=== PATIENT | female | born 1955 | race Caucasian/White ===

== ENCOUNTER 2017-04-20 07:26 | Day surgery (SDC) | payer MEDICARE, MEDICAID ==
[~2017-04-20 07:26] MED LIST: Lactated Ringers 1,000 ML IV SCH; Sodium Chloride 0.9% 10 ML Syringe FLUSH PRN; Sodium Chloride 0.9% 2.5 ML Syringe FLUSH PRN
--- NOTE | 2017-04-20 07:31 | PCM.OPNOTE ---
<Anibal Peña - Last Filed: 04/20/17 10:27> - General Post-Op/Procedure Note Date of Surgery/Procedure: 04/20/17 Operative Procedure(s): diagnostic colonoscopy Findings: multiple sigmoid diverticuli Pre Op Diagnosis: change in bowel movements Post-Op Diagnosis: diveritculosis Anesthesia Technique: MAC Primary Surgeon: Joann Walter Complications: None Condition: Good <Joann Walter - Last Filed: 04/20/17 11:33> - General Post-Op/Procedure Note Post-Op Diagnosis: Grade 3 hemorrhoids Free Text/Narrative:: Intake & Output 04/19/17 04/20/17 04/20/17 22:59 06:59 14:59 Intake Total 900 Balance 900
--- NOTE | 2017-04-20 07:51 | PCM.PREANE ---
Preanesthetic Assessment - Anesthesia/Transfusion/Family Hx Anesthesia History: Prior Anesthesia Without Reaction Family History of Anesthesia Reaction: No Transfusion History: No Prior Transfusion(s) Intubation History: Unknown - Review of Systems General: No Symptoms Pulmonary: No Symptoms Cardiovascular: No Symptoms Gastrointestinal: Diarrhea Neurological: No Symptoms Other: Reports: None - Physical Assessment O2 Sat by Pulse Oximetry: 93 Respiratory Rate: 14 Vital Signs: Last Vital Signs Temp 36.4 C 04/20/17 07:37 Pulse 72 04/20/17 07:37 Resp 14 04/20/17 07:37 BP 98/79 04/20/17 07:37 Pulse Ox 93 L 04/20/17 07:37 Height: 1.73 m Weight: 81.193 kg ASA Class: 3 Mental Status: Alert & Oriented x3 Airway Class: Mallampati = 2 Dentition: Reports: Normal Dentition Thyro-Mental Finger Breadths: 2 Mouth Opening Finger Breadths: 3 ROM/Head Extension: Full Lungs: Clear to auscultation, Normal respiratory effort, Decreased breath sounds Cardiovascular: Regular Rate, Regular Rhythm - Allergies Allergies/Adverse Reactions: Allergies Allergy/AdvReac Type Severity Reaction Status Date / Time acetaminophen [From Tylenol] Allergy Hives Verified 04/13/17 13:26 aspirin Allergy Hives Verified 11/14/16 20:28 ketorolac [From Toradol] Allergy Hives Verified 04/13/17 13:26 tramadol Allergy Hives Verified 11/14/16 20:28 - Blood Blood Available: No - Anesthesia Plan Pre-Op Medication Ordered: None - Acknowledgements Anesthesia Type Planned: MAC Pt an Appropriate Candidate for the Planned Anesthesia: Yes Alternatives and Risks of Anesthesia Discussed w Pt/Guardian: Yes Pt/Guardian Understands and Agrees with Anesthesia Plan: Yes PreAnesthesia Questionnaire Other HEENT History: reading glasses Cardiovascular History: Reports: High Cholesterol, Hypertension Respiratory History: Reports: Asthma, Bronchitis, Recurrent, COPD, SOB (after one block) Gastrointestinal History: Genitourinary History: Reports: None G[employer] 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: Musculoskeletal History: Reports: Arthritis, Back Pain, Chronic, Fibromyalgia, Osteoporosis Other Musculoskeletal History: degenerative joint disease, bulging disc, osteoprosis Neurological History: Reports: Migraines Psychiatric History: Reports: Anxiety, Depression, Other (See Below) ( claustrophobia) Endocrine/Metabolic History: Reports: Hyperparathyroidism, Other (See Below) Other Endocrine/Metabolic History: Patient reports having a thyroid problem but unsure what diagnosis, questionable thyroid nodule, states she has been taking care of her mother and has not gotten it taken care of Hematologic History: Reports: Other (See Below) Other Hematologic History: easy brusing Immunologic History: Reports: None Oncologic (Cancer) History: Reports: None Dermatologic History: Reports: None - Infectious Disease History Infectious Disease History: Reports: Chicken Pox - Past Surgical History Head Surgeries/Procedures: Reports: None HEENT Surgical History: Reports: Cataract Surgery GI Surgical History: Reports: Colonoscopy, Hernia Repair/Other Other GI Surgeries/Procedures: hx incisional hernia repair Female Surgical History: Reports: Hysterectomy - SUBSTANCE USE Smoking Status *Q: Current Every Day Smoker (heavy smoker) Tobacco Use Within Last Twelve Months: Cigarettes Second Hand Smoke Exposure: No Days Per Week of Alcohol Use: 2 Number of Drinks Per Day: 2 Total Drinks Per Week: 4 Recreational Drug Use History: No - HOME MEDS Home Medications: Home Meds Alendronate [Fosamax] 70 mg PO Q7D 09/08/14 [History] Losartan [Cozaar] 25 mg PO DAILY 09/08/14 [History] Metoprolol Tartrate [Lopressor] 50 mg PO DAILY 09/08/14 [History] LORazepam 1 mg PO TID PRN #12 tablet 11/11/16 [Rx] Albuterol Sulfate [Proair Hfa] 2 puff INH Q4H PRN 04/13/17 [History] DULoxetine HCl [Cymbalta] 60 mg PO DAILY 04/13/17 [History] Diclofenac Sodium [Voltaren] 75 mg PO BID 04/13/17 [History] Potassium 75 mg PO ASDIRECTED 04/13/17 [History] Venlafaxine HCl [Venlafaxine HCl ER] 37.5 mg PO DAILY 04/13/17 [History] Vilazodone Hydrochloride [Viibryd] 40 mg PO DAILY 04/13/17 [History] traZODone HCl [Trazodone HCl] 100 mg PO BEDTIME 04/13/17 [History] - CURRENT (IN HOUSE) MEDS Current Meds: Current Medications Lactated Ringer's (Ringers, Lactated) 1,000 mls @ 125 mls/hr IV ASDIRECTED [facility] Last Admin: 04/20/17 07:39 Dose: 125 mls/hr Sodium Chloride (Saline Flush) 10 ml FLUSH ASDIRECTED PRN PRN Reason: Keep Vein Open Sodium Chloride (Saline Flush) 2.5 ml FLUSH ASDIRECTED PRN PRN Reason: Keep Vein Open
[2017-04-20] MEDS ORDERED: Lidocaine 2% 5 ML SDV ONE (08:27)
[2017-04-20] MEDS ORDERED: Midazolam 1 MG/ML 2 ML SDV ONE (08:28)
[2017-04-20] MEDS ORDERED: Propofol 200 MG/20 ML SDV ONE (08:28)
[2017-04-20] MEDS ORDERED: fentaNYL 100 MCG/2 ML SDV ONE (08:28)
--- NOTE | 2017-04-20 10:45 | PCM.POSTAN ---
POST ANESTHESIA ASSESSMENT - MENTAL STATUS Mental Status: alert, oriented - RESPIRATORY Respiratory Status: respiratory rate WNL, airway patent, O2 saturation stable - CARDIOVASCULAR CV Status: pulse rate WNL, blood pressure stable - GASTROINTESTINAL GI Status: no symptoms - POST OP HYDRATION Hydration Status: adequate & stable - OBSERVATIONS Free Text/Narrative:: no anesthesia problems
[2017-04-20 10:57] VITALS: BP 94/64
--- NOTE | 2017-04-21 11:39 | OR ---
SURGEON: JOANN WALTER MD DATE OF PROCEDURE: 04/20/2017 PREOPERATIVE DIAGNOSIS: Change in bowel habits. POSTOPERATIVE DIAGNOSIS: Grade 3 hemorrhoids and diverticulosis. PROCEDURE PERFORMED: Diagnostic colonoscopy. ENDOSCOPIST: Dr. Joann Walter. INSTRUMENT USED: Olympus colonoscope. ANESTHESIA: MAC. EXTENT OF EXAM: To the cecum. PREPARATION: Good. LIMITATIONS: None. INDICATION FOR EXAMINATION: The patient is a 61-year-old female, who presents with abdominal pain associated with a change in her bowel habits. She has had frequent loose stools and has noticed some bright red blood on the stools and while wiping. A decision was made to perform a diagnostic colonoscopy since she has never had a colonoscopy before. The patient and I discussed the procedure as well as the risks including bleeding, infection, or damage to surrounding structures, including perforation. The patient verbalized understanding and wishes to proceed. PROCEDURE IN DETAIL: The patient was brought to the endoscopy suite and placed in left lateral decubitus position. A time-out was completed verifying the patient's name, age, date of , allergies, and procedure to be performed. Monitored anesthesia care was induced and continuous oxygen was provided via nasal cannula throughout the procedure. After adequate sedation was achieved, a digital rectal exam was performed. This exam showed redundant hemorrhoidal tissue that was easily able to be reduced back into the anus. A well lubricated colonoscope was inserted in the rectum and advanced under direct visualization to the level of cecum. The cecum was identified by both visual and anatomic landmarks. A photograph was taken of the cecal cap as well as with the scope retroflexed within the cecum. The scope was then fully withdrawn while examining the color, texture, anatomy, and integrity of the mucosa from the cecum to the anal canal. The findings were consistent with diffuse diverticulosis within the sigmoid colon. The scope was then brought into the rectum and retroflexed to allow visualization of the anal canal opening. This appeared normal and a photograph was taken. The scope was straightened out and removed from the patient. The cecum to anus time was 11 minutes. The patient was transferred to recovery room in stable condition. ENDOSCOPIC DIAGNOSIS: Diverticulosis, grade 3 hemorrhoids. RECOMMENDATIONS: Follow up in the clinic in 2 weeks. MILAD GUILLEN /[id number]
== END 2017-04-20 11:25 | disposition home or self-care (01) ==
LOC: MW.SDS 07:26
PROVIDERS: ATTEND Surgery
DX: K57.30 Diverticulosis of large intestine without perforation or abscess without bleeding (principal); K64.2 Third degree hemorrhoids; I10 Essential (primary) hypertension; E78.00 Pure hypercholesterolemia, unspecified; J45.909 Unspecified asthma, uncomplicated; F41.9 Anxiety disorder, unspecified; F32.9 Major depressive disorder, single episode, unspecified; E21.3 Hyperparathyroidism, unspecified; Z90.710 Acquired absence of both cervix and uterus; Z98.890 Other specified postprocedural states; F17.210 Nicotine dependence, cigarettes, uncomplicated; Z88.8 Allergy status to other drugs, medicaments and biological substances; Z79.899 Other long term (current) drug therapy
CPT/HCPCS: 45378; J2250; J3010; J7120; 00810; J2704

== ENCOUNTER 2019-09-25 14:50 | Emergency (ER) | payer MEDICARE, MEDICAID ==
[2019-09-25 15:26] VITALS: PULSE 82
--- NOTE | 2019-09-25 16:01 | EDM.PDOC ---
ED HPI GENERAL MEDICAL PROBLEM - General Chief Complaint: Flank Pain Stated Complaint: PAIN IN SIDE Time Seen by Provider: 09/25/19 15:49 - History of Present Illness INITIAL COMMENTS - FREE TEXT/NARRATIVE: HISTORY AND PHYSICAL: History of present illness: Patient is a 63-year-old white female who presented concern of flank pain is vaguely described she's had off and on for approximately 2 weeks she has been seen in the past for multiple similar episodes. She has history of anxiety there 's been no reported trauma fever chills nausea vomiting or other concern Review of systems: As per history of present illness and below otherwise all systems reviewed and negative. Past medical history: As per history of present illness and as reviewed below otherwise noncontributory. Surgical history: As per history of present illness and as reviewed below otherwise noncontributory. Social history: No reported history of drug or alcohol abuse. Family history: As per history of present illness and as reviewed below otherwise noncontributory. Physical exam: HEENT: Atraumatic, normocephalic, pupils reactive, negative for conjunctival pallor or scleral icterus, mucous membranes moist, throat clear, neck supple, nontender, trachea midline. Lungs: Clear to auscultation, breath sounds equal bilaterally, chest nontender. Heart: S1S2, regular, negative for clicks, rubs, or JVD. Abdomen: Soft, nondistended, nontender. Negative for masses or hepatosplenomegaly. Negative for costovertebral tenderness. Pelvis: Stable nontender. Genitourinary: Deferred. Rectal: Deferred. Extremities: Atraumatic, negative for cords or calf pain. Neurovascular unremarkable. Neuro: Awake, alert, oriented. Cranial nerves II through XII unremarkable. Cerebellum unremarkable. Motor and sensory unremarkable throughout. Exam nonfocal. Diagnostics: CBC CMP lipase UA Therapeutics: None Impression: #1 flank pain 2 history of anxiety Definitive disposition and diagnosis as appropriate pending reevaluation and review of above. left flank Pain Score (Numeric/FACES): 10 - Related Data Allergies Allergy/AdvReac Type Severity Reaction Status Date / Time acetaminophen [From Tylenol] Allergy Hives Verified 09/25/19 15:26 aspirin Allergy Hives Verified 09/25/19 15:26 ketorolac [From Toradol] Allergy Hives Verified 09/25/19 15:26 tramadol Allergy Hives Verified 09/25/19 15:26 Home Meds: Home Meds Metoprolol Tartrate [Lopressor] 50 mg PO DAILY 09/08/14 [History] Albuterol Sulfate [Proair Hfa] 2 puff INH Q4H PRN 04/13/17 [History] DULoxetine HCl [Cymbalta] 60 mg PO DAILY 04/13/17 [History] Potassium 99 mg PO BID 04/13/17 [History] Vilazodone Hydrochloride [Viibryd] 40 mg PO DAILY 04/13/17 [History] traZODone HCl [Trazodone HCl] 300 mg PO BEDTIME 04/13/17 [History] C-Nal Trexone 3 mg PO DAILY 11/16/18 [History] Cyanocobalamin (Vitamin B-12) [Vitamin B-12] 5,000 mcg PO DAILY 11/16/18 [ History] Fish Oil/[place]-3 Fatty Acids [Fish Oil 1,000 MG] 0 mg PO DAILY 11/16/18 [History ] LORazepam 0.5 mg PO ASDIRECTED PRN 11/16/18 [History] Magnesium 500 mg PO BEDTIME 11/16/18 [History] Multivitamin [Multivitamins] 0 mg PO DAILY 11/16/18 [History] Pressure Vission 0 mg PO DAILY 11/16/18 [History] Raloxifene [Evista] 60 mg PO DAILY 11/16/18 [History] Past Medical History HEENT History: Reports: Other (See Below) Other HEENT History: reading glasses Cardiovascular History: Reports: High Cholesterol, Hypertension Respiratory History: Reports: Asthma, Bronchitis, Recurrent, COPD, SOB Gastrointestinal History: Genitourinary History: Reports: None 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: Musculoskeletal History: Reports: Arthritis, Back Pain, Chronic, Fibromyalgia, Osteoporosis Other Musculoskeletal History: degenerative joint disease, bulging disc, osteoprosis Neurological History: Reports: Migraines Psychiatric History: Reports: Anxiety, Depression, Other (See Below) Endocrine/Metabolic History: Reports: Hyperparathyroidism, Other (See Below) Other Endocrine/Metabolic History: Patient reports having a thyroid problem but unsure what diagnosis, questionable thyroid nodule, states she has been taking care of her mother and has not gotten it taken care of Hematologic History: Reports: Other (See Below) Other Hematologic History: easy brusing Immunologic History: Reports: None Oncologic (Cancer) History: Reports: None Dermatologic History: Reports: None - Infectious Disease History Infectious Disease History: Reports: Chicken Pox - Past Surgical History Head Surgeries/Procedures: Reports: None HEENT Surgical History: Reports: Cataract Surgery, Tonsillectomy GI Surgical History: Reports: Colonoscopy, Hernia Repair/Other Other GI Surgeries/Procedures: hx incisional hernia repair Female Surgical History: Reports: Hysterectomy Social & Family History - Family History Family Medical History: Noncontributory - Tobacco Use Smoking Status *Q: Current Every Day Smoker Years of Tobacco use: 35 Packs/Tins Daily: 2 - Caffeine Use Caffeine Use: Reports: Soda - Recreational Drug Use Recreational Drug Use: No ED ROS GENERAL - Review of Systems Review Of Systems: Comprehensive ROS is negative, except as noted in HPI. ED EXAM, GENERAL - Physical Exam Exam: See Below (See dictation) Course - Vital Signs Last Recorded V/S: Last Vital Signs Temp 35.9 C 09/25/19 15:24 Pulse 82 09/25/19 15:24 Resp 20 09/25/19 15:24 BP 108/66 09/25/19 15:24 Pulse Ox 94 L 09/25/19 15:24 - Orders/Labs/Meds Orders: Active Orders 24 hr Category Date Time Status COMPREHENSIVE METABOLIC PN,CMP [CHEM] Stat Lab 09/25/19 16:02 Received LIPASE [CHEM] Stat Lab 09/25/19 16:02 Received Labs: Laboratory Tests 09/25/19 09/25/19 Range/Units 15:46 16:02 WBC 12.08 H (4.0-11.0) K/uL RBC 5.03 (4.30-5.90) M/uL Hgb 14.5 (12.0-16.0) g/dL Hct 45.4 (36.0-46.0) % MCV 90.3 (80.0-98.0) fL MCH 28.8 (27.0-32.0) pg MCHC 31.9 (31.0-37.0) g/dL RDW Std Deviation 51.9 (28.0-62.0) fl RDW Coeff of Joseph 16 H (11.0-15.0) % Plt Count 295 (150-400) K/uL MPV 9.60 (7.40-12.00) fL Neut % (Auto) 69.0 (48.0-80.0) % Lymph % (Auto) 20.6 (16.0-40.0) % [place] % (Auto) 9.5 (0.0-15.0) % Eos % (Auto) 0.7 (0.0-7.0) % Baso % (Auto) 0.2 (0.0-1.5) % Neut # (Auto) 8.3 H (1.4-5.7) K/uL Lymph # (Auto) 2.5 H (0.6-2.4) K/uL [place] # (Auto) 1.2 H (0.0-0.8) K/uL Eos # (Auto) 0.1 (0.0-0.7) K/uL Baso # (Auto) 0.0 (0.0-0.1) K/uL Nucleated RBC % 0.0 /100WBC Nucleated RBCs # 0 K/uL Urine Color YELLOW Urine Appearance CLEAR Urine pH 6.5 (5.0-8.0) Ur Specific [place] 1.015 (1.001-1.035) Urine Protein NEGATIVE (NEGATIVE) mg/dL Urine Glucose (UA) NEGATIVE (NEGATIVE) mg/dL Urine Ketones NEGATIVE (NEGATIVE) mg/dL Urine Occult Blood NEGATIVE (NEGATIVE) Urine Nitrite NEGATIVE (NEGATIVE) Urine Bilirubin NEGATIVE (NEGATIVE) Urine Urobilinogen 0.2 (<2.0) EU/dL Ur Leukocyte Esterase NEGATIVE (NEGATIVE) Departure - Departure Time of Disposition: 16:00 Disposition: Home, Self-Care 01 Condition: Good Clinical Impression: Flank pain, Encounter for medical screening examination, History of anxiety - Discharge Information Referrals: Angela Lockhart MD [Primary Care Provider] - Forms: ED Department Discharge Additional Instructions: The following information is given to patients seen in the emergency department who are being discharged to home. This information is to outline your options for follow-up care. We provide all patients seen in our emergency department with a follow-up referral. The need for follow-up, as well as the timing and circumstances, are variable depending upon the specifics of your emergency department visit. If you don't have a primary care physician on staff, we will provide you with a referral. We always advise you to contact your personal physician following an emergency department visit to inform them of the circumstance of the visit and for follow-up with them and/or the need for any referrals to a consulting specialist. The emergency department will also refer you to a specialist when appropriate. This referral assures that you have the opportunity for followup care with a specialist. All of these measure are taken in an effort to provide you with optimal care, which includes your followup. Under all circumstances we always encourage you to contact your private physician who remains a resource for coordinating your care. When calling for followup care, please make the office aware that this follow-up is from your recent emergency room visit. If for any reason you are refused follow-up, please contact the [facility] emergency department at and asked to speak to the emergency department charge nurse. Follow-up primary medical doctor return as needed as discussed Sepsis Event Note - Evaluation Sepsis Screening Result: No Definite Risk - Focused Exam Vital Signs: Vital Signs Temp Pulse Resp BP Pulse Ox 09/25/19 15:24 35.9 C 82 20 108/66 94 L Date Exam was Performed: 09/25/19 Time Exam was Performed: 16:31 - My Orders Last 24 Hours: My Active Orders 09/25/19 16:02 COMPREHENSIVE METABOLIC PN,CMP [CHEM] Stat LIPASE [CHEM] Stat - Assessment/Plan Last 24 Hours: My Active Orders 09/25/19 16:02 COMPREHENSIVE METABOLIC PN,CMP [CHEM] Stat LIPASE [CHEM] Stat
[2019-09-25 16:49] LABS: BLOOD UREA NITROGEN,BUN 11 mg/dL (7.0-18.0); CARBON DIOXIDE,CO2 24.1 mmol/L (21.0-32.0); CHLORIDE,CL 103 mmol/L (98-107); GLUCOSE RANDOM 99 mg/dL (74-106); LIPASE 79 U/L (73-393); POTASSIUM,K 4.8 mmol/L (3.5-5.1); SODIUM,NA 136 mmol/L (136-145)
[2019-09-25 17:30] VITALS: BP 103/73
== END 2019-09-25 17:15 | disposition home or self-care (01) ==
LOC: MW.ED 14:50
DX: R10.9 Unspecified abdominal pain (principal); F41.9 Anxiety disorder, unspecified; I10 Essential (primary) hypertension; E78.00 Pure hypercholesterolemia, unspecified; J44.9 Chronic obstructive pulmonary disease, unspecified; M19.90 Unspecified osteoarthritis, unspecified site; F32.9 Major depressive disorder, single episode, unspecified; F17.210 Nicotine dependence, cigarettes, uncomplicated; Z88.8 Allergy status to other drugs, medicaments and biological substances; Z88.5 Allergy status to narcotic agent; Z79.899 Other long term (current) drug therapy
CPT/HCPCS: 36415; 80053; 81003; 83690; 85025; 99283; 99284

== ENCOUNTER 2019-12-04 20:02 | Emergency (ER) | payer MEDICARE, MEDICAID ==
--- NOTE | 2019-12-04 20:20 | EDM.PDOC ---
ED HPI GENERAL MEDICAL PROBLEM - General Chief Complaint: General Stated Complaint: MEDICAL CLEARANCE Time Seen by Provider: 12/04/19 20:09 Source of Information: Reports: Patient History Limitations: Reports: No Limitations - History of Present Illness INITIAL COMMENTS - FREE TEXT/NARRATIVE: HISTORY AND PHYSICAL: History of present illness: Patient is a 64-year-old female who presents to the emergency room with law enforcement for medical clearance exam. Patient states that she feels well and would not have brought herself to the emergency room if it was and insisted on the police to come for evaluation. Police state they have no concern but since she is on chronic medications they needed her cleared. Patient states she has a history of anxiety and chronic back pain. Currently offers no complaints or concerns. Review of systems: As per history of present illness and below otherwise all systems reviewed and negative. Past medical history: As per history of present illness and as reviewed below otherwise noncontributory. Surgical history: As per history of present illness and as reviewed below otherwise noncontributory. Social history: See social history for further information Family history: As per history of present illness and as reviewed below otherwise noncontributory. Physical exam: General: Well-developed and well-nourished 64-year-old female. Alert and oriented. Nontoxic-appearing and in no acute distress. HEENT: Atraumatic, normocephalic, pupils equal and reactive bilaterally, negative for conjunctival pallor or scleral icterus, mucous membranes moist, TMs normal bilaterally, throat clear, neck supple, nontender, trachea midline. No drooling or trismus noted. No meningeal signs. No hot potato voice noted. Lungs: Clear to auscultation, breath sounds equal bilaterally, chest nontender. Heart: S1S2, regular rate and rhythm without overt murmur Abdomen: Soft, nondistended, nontender. Skin: Intact, warm, dry. No lesions or rashes noted. Extremities: Atraumatic, moves all extremities per self without difficulty or deficits, negative for cords or calf pain. Neurovascular unremarkable. Neuro: Awake, alert, oriented. Cranial nerves II through XII unremarkable. Cerebellum unremarkable. Motor and sensory unremarkable throughout. Exam nonfocal. Notes: My physical exam is within normal limits. Vital signs are stable. Patient declines wanting any diagnostics as she is asymptomatic. Supportive care measures were reviewed and discussed. Voices understanding and is agreeable to plan of care. Denies any further questions or concerns at this time. Diagnostics: None Therapeutics: None Prescription: None Impression: Encounter for medical screening exam Plan: 1. Take your home medications as directed. 2. Follow-up with your primary care provider as we discussed. 3. Return to the ED as needed and as discussed. Definitive disposition and diagnosis as appropriate pending reevaluation and review of above. - Related Data Allergies Allergy/AdvReac Type Severity Reaction Status Date / Time acetaminophen [From Tylenol] Allergy Hives Verified 12/04/19 20:20 aspirin Allergy Hives Verified 12/04/19 20:20 ketorolac [From Toradol] Allergy Hives Verified 12/04/19 20:20 tramadol Allergy Hives Verified 12/04/19 20:20 Home Meds: Home Meds Metoprolol Tartrate [Lopressor] 50 mg PO DAILY 09/08/14 [History] Albuterol Sulfate [Proair Hfa] 2 puff INH Q4H PRN 04/13/17 [History] DULoxetine HCl [Cymbalta] 60 mg PO DAILY 04/13/17 [History] Potassium 99 mg PO BID 04/13/17 [History] Vilazodone Hydrochloride [Viibryd] 40 mg PO DAILY 04/13/17 [History] traZODone HCl [Trazodone HCl] 300 mg PO BEDTIME 04/13/17 [History] C-Nal Trexone 3 mg PO DAILY 11/16/18 [History] Cyanocobalamin (Vitamin B-12) [Vitamin B-12] 5,000 mcg PO DAILY 11/16/18 [ History] Fish Oil/[place]-3 Fatty Acids [Fish Oil 1,000 MG] 0 mg PO DAILY 11/16/18 [History ] LORazepam 0.5 mg PO ASDIRECTED PRN 11/16/18 [History] Magnesium 500 mg PO BEDTIME 11/16/18 [History] Multivitamin [Multivitamins] 0 mg PO DAILY 11/16/18 [History] Pressure Vission 0 mg PO DAILY 11/16/18 [History] Raloxifene [Evista] 60 mg PO DAILY 11/16/18 [History] Past Medical History HEENT History: Reports: Other (See Below) Other HEENT History: reading glasses Cardiovascular History: Reports: High Cholesterol, Hypertension Respiratory History: Reports: Asthma, Bronchitis, Recurrent, COPD, SOB Gastrointestinal History: Genitourinary History: Reports: None 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: Musculoskeletal History: Reports: Arthritis, Back Pain, Chronic, Fibromyalgia, Osteoporosis Other Musculoskeletal History: degenerative joint disease, bulging disc, osteoprosis Neurological History: Reports: Migraines Psychiatric History: Reports: Anxiety, Depression, Other (See Below) Endocrine/Metabolic History: Reports: Hyperparathyroidism, Other (See Below) Other Endocrine/Metabolic History: Patient reports having a thyroid problem but unsure what diagnosis, questionable thyroid nodule, states she has been taking care of her mother and has not gotten it taken care of Hematologic History: Reports: Other (See Below) Other Hematologic History: easy brusing Immunologic History: Reports: None Oncologic (Cancer) History: Reports: None Dermatologic History: Reports: None - Infectious Disease History Infectious Disease History: Reports: Chicken Pox - Past Surgical History Head Surgeries/Procedures: Reports: None HEENT Surgical History: Reports: Cataract Surgery, Tonsillectomy GI Surgical History: Reports: Colonoscopy, Hernia Repair/Other Other GI Surgeries/Procedures: hx incisional hernia repair Female Surgical History: Reports: Hysterectomy Social & Family History - Family History Family Medical History: Noncontributory - Caffeine Use Caffeine Use: Reports: Soda ED ROS GENERAL - Review of Systems Review Of Systems: Comprehensive ROS is negative, except as noted in HPI. ED EXAM, GENERAL - Physical Exam Exam: See Below (See dictation) Course - Vital Signs Last Recorded V/S: Last Vital Signs Temp 97 F 12/04/19 20:18 Pulse 104 H 12/04/19 20:18 Resp 20 12/04/19 20:18 BP 153/96 H 12/04/19 20:18 Pulse Ox 96 12/04/19 20:18 Departure - Departure Time of Disposition: 20:20 Disposition: Home, Self-Care 01 Clinical Impression: Encounter for medical screening examination - Discharge Information Referrals: PCP,None [Primary Care Provider] - Forms: ED Department Discharge Additional Instructions: The following information is given to patients seen in the emergency department who are being discharged to home. This information is to outline your options for follow-up care. We provide all patients seen in our emergency department with a follow-up referral. The need for follow-up, as well as the timing and circumstances, are variable depending upon the specifics of your emergency department visit. If you don't have a primary care physician on staff, we will provide you with a referral. We always advise you to contact your personal physician following an emergency department visit to inform them of the circumstance of the visit and for follow-up with them and/or the need for any referrals to a consulting specialist. The emergency department will also refer you to a specialist when appropriate. This referral assures that you have the opportunity for follow-up care with a specialist. All of these measure are taken in an effort to provide you with optimal care, which includes your follow-up. Under all circumstances we always encourage you to contact your private physician who remains a resource for coordinating your care. When calling for follow-up care, please make the office aware that this follow-up is from your recent emergency room visit. If for any reason you are refused follow-up, please contact the [facility] Department at and asked to speak to the emergency department charge nurse. [facility] [address] [place] [id number] [place] [address] 1. Take your home medications as directed. 2. Follow-up with your primary care provider as we discussed. 3. Return to the ED as needed and as discussed. Sepsis Event Note - Focused Exam Vital Signs: Vital Signs Temp Pulse Resp BP Pulse Ox 12/04/19 20:18 97 F 104 H 20 153/96 H 96
[2019-12-04 20:21] VITALS: PULSE 104
[2019-12-04 20:51] VITALS: BP 177/84
== END 2019-12-04 20:30 | disposition home or self-care (01) ==
LOC: MW.ED 20:02
DX: Z02.89 Encounter for other administrative examinations (principal); I10 Essential (primary) hypertension; E78.00 Pure hypercholesterolemia, unspecified; J44.9 Chronic obstructive pulmonary disease, unspecified; M19.90 Unspecified osteoarthritis, unspecified site; F41.9 Anxiety disorder, unspecified; F32.9 Major depressive disorder, single episode, unspecified; E21.3 Hyperparathyroidism, unspecified; Z88.8 Allergy status to other drugs, medicaments and biological substances; Z88.5 Allergy status to narcotic agent; Z79.899 Other long term (current) drug therapy
CPT/HCPCS: 99282; 99283

== ENCOUNTER 2021-02-11 23:53 | Emergency (ER) | payer MEDICARE, MEDICAID ==
[2021-02-12] MEDS ORDERED: Sodium Chloride 0.9% 10 ML Syringe FLUSH PRN (00:41)
[2021-02-12] MEDS ORDERED: Sodium Chloride 0.9% 1,000 ML IV ONE (00:41)
[2021-02-12] MEDS ORDERED: HYDROmorphone 1 MG/ML Syringe IVPUSH ONE (00:41)
[2021-02-12] MEDS ORDERED: Sodium Chloride 0.9% 2.5 ML Syringe FLUSH PRN (00:41)
[2021-02-12] MEDS ORDERED: Ondansetron 4 MG/2 ML SDV IVPUSH ONE (00:41)
[2021-02-12 01:14] LABS: BLOOD UREA NITROGEN,BUN 15 mg/dL (7.0-18.0); CARBON DIOXIDE,CO2 28.1 mmol/L (21.0-32.0); CHLORIDE,CL 102 mmol/L (98-107); GLUCOSE RANDOM 102 mg/dL (74-106); LIPASE 67 U/L (73-393); POTASSIUM,K 4.3 mmol/L (3.5-5.1); SODIUM,NA 140 mmol/L (136-145)
--- NOTE | 2021-02-12 02:20 | EDM.PDOC ---
ED HPI GENERAL MEDICAL PROBLEM - General Chief Complaint: Abdominal Pain Stated Complaint: APPENDIX Time Seen by Provider: 02/12/21 00:38 - History of Present Illness INITIAL COMMENTS - FREE TEXT/NARRATIVE: HISTORY AND PHYSICAL: History of present illness: This is a 65-year-old female who is status post hysterectomy, hernia repair, thyroid cancer with thyroid resection, who presents ER today complaining of right-sided flank and abdominal pain has been intermittent for the last 1 to 2 weeks. Patient denies any recent fevers, shakes, chills. Patient reports nausea with no vomiting or diarrhea. Patient has a dysuria, frequency, urgency, hematuria, melena, bright red blood per rectum. Patient reports pain increases with movement. Patient denies any chest pain or shortness of breath. Patient reports she is tolerating p.o. solids and liquids well. Patient denies any recent trauma. Review of systems: As per history of present illness and below otherwise all systems reviewed and negative. Past medical history: As per history of present illness and as reviewed below otherwise noncontributory. Surgical history: As per history of present illness and as reviewed below otherwise noncontributory. Social history: No reported history of drug or alcohol abuse. Family history: As per history of present illness and as reviewed below otherwise noncontributory. Physical exam: This patient was seen and evaluated during the 2019 SARS-CoV-2 novel coronavirus pandemic period. Community viral transmission is ongoing at time of this encounter and the emergency department is operating under pandemic response p rocedures. Constitutional: Patient is oriented to person, place, and time. Appears well- developed and well-nourished. No distress. HEENT: Moist mucous membranes Head: Normocephalic and atraumatic Eyes: Right eye exhibits no discharge. Left eye exhibits no discharge. No scleral icterus Neck: Normal range of motion. No tracheal deviation present. Cardiovascular: Normal rate and regular rhythm. Pulmonary: Effort normal, no respiratory distress. Abd: Soft, nondistended, no rebound/guarding, no psoas or obturator signs, no tenderness at Mcberney's point, no Aquino's sign. Pt does not present with an exam that would be consistent with an acute surgical abdomen at this time, mild to moderate tenderness palpation to her right flank and right lower quadrant. Musculoskeletal: Normal range of motion Neurologic: Alert and oriented to person, place and time. Skin: [place], warm and dry. Psychiatric: Normal mood and affect. Behavior is normal. Judgment and thought content normal. Nursing note and vital signs have been reviewed Diagnostics: IMPRESSION: Bilateral nephrolithiasis without hydronephrosis. Gallbladder sludge or stones. Left adrenal gland adenoma. Colonic diverticulosis. Appendix appears to be surgically absent. Correlate with surgical history. Small fat containing ventral hernia located just above ventral herniorrhaphy mesh. Stable popcorn like lesion in the left femoral head may represent an enchondroma. If there is any pain in the left hip recommend MRI for further evaluation. Bilateral sacroiliac joint sclerosis, slightly increased compared to the prior study. Status post hysterectomy in L2-L5 instrumentation. Labs all within normal limits. Urinalysis normal. Therapeutics: Pain meds given in the ED. Feels much improved Assessment and plan: This is a 65-year-old female has a history significant for renal colic in the past who presents ER today complaining of intermittent episodes of right flank and right lower quadrant pain x1 to 2 weeks. Patient has a recent fevers, shakes, chills. Patient's labs are all within normal limits. Patient was given adequate analgesia in the ED and at 2 AM she reports that she is pain-free and has been resting comfortably and sleeping in her room without any difficulty. Patient will be reassessed after CT scan report. At this time, the patient is now presenting with signs and symptoms of be concerning for an acute surgical abdomen. 2:38 AM: Patient reports that she feels much improved. I have discussed all the results with the patient and the need to follow-up with her primary care debra tran for further investigation of the cause to her pain. At this time the patient's pain is completely resolved. I have discussed with the patient return precautions. Patient at this time is not exhibiting any signs or symptoms of be concerning for an acute surgical abdomen. During the course of the patient's evaluation for abdominal pain, kidney stone, pancreatitis, cholecystitis, diverticulitis, abdominal aortic aneurysm, myocardial infarction, ischemic bowel, ruptured peptic ulcer, ruptured viscus, UTI,and appendicitis as well as other causes of abdominal pain have been considered. Definitive disposition and diagnosis as appropriate pending reevaluation and review of above. Right Lower Abdomen Pain Score (Numeric/FACES): 6 - Related Data Allergies Allergy/AdvReac Type Severity Reaction Status Date / Time acetaminophen [From Tylenol] Allergy Hives Verified 02/12/21 00:29 aspirin Allergy Hives Verified 02/12/21 00:29 ketorolac [From Toradol] Allergy Hives Verified 02/12/21 00:29 tramadol Allergy Hives Verified 02/12/21 00:29 Home Meds: Home Meds Metoprolol Tartrate [Lopressor] 50 mg PO DAILY 09/08/14 [History] Albuterol Sulfate [Proair Hfa] 2 puff INH Q4H PRN 04/13/17 [History] DULoxetine HCl [Cymbalta] 60 mg PO DAILY 04/13/17 [History] Potassium 99 mg PO BID 04/13/17 [History] Vilazodone HCl [Viibryd] 40 mg PO DAILY 04/13/17 [History] traZODone HCl [Trazodone HCl] 300 mg PO BEDTIME 04/13/17 [History] C-Nal Trexone 3 mg PO DAILY 11/16/18 [History] Cyanocobalamin (Vitamin B-12) [Vitamin B-12] 5,000 mcg PO DAILY 11/16/18 [History] Fish Oil/[place]-3 Fatty Acids [Fish Oil 1,000 MG] 0 mg PO DAILY 11/16/18 [History] LORazepam 0.5 mg PO ASDIRECTED PRN 11/16/18 [History] Magnesium 500 mg PO BEDTIME 11/16/18 [History] Multivitamin [Multivitamins] 0 mg PO DAILY 11/16/18 [History] Pressure Vission 0 mg PO DAILY 11/16/18 [History] Raloxifene [Evista] 60 mg PO DAILY 11/16/18 [History] Acetaminophen/HYDROcodone [Ely 325-5 MG] 1 tab PO Q6H PRN #10 tablet 02/12/21 [Rx] Past Medical History HEENT History: Reports: Other (See Below) Other HEENT History: reading glasses Cardiovascular History: Reports: High Cholesterol, Hypertension Respiratory History: Reports: Asthma, Bronchitis, Recurrent, COPD, SOB Gastrointestinal History: Reports: Gastritis Genitourinary History: Reports: Pyelonephritis 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: Musculoskeletal History: Reports: Arthritis, Back Pain, Chronic, Fibromyalgia, Osteoporosis Other Musculoskeletal History: degenerative joint disease, bulging disc, osteoprosis Neurological History: Reports: Migraines Psychiatric History: Reports: Anxiety, Depression, Other (See Below) Endocrine/Metabolic History: Reports: Hyperparathyroidism, Other (See Below) Other Endocrine/Metabolic History: Patient reports having a thyroid problem but unsure what diagnosis, questionable thyroid nodule, states she has been taking care of her mother and has not gotten it taken care of Hematologic History: Reports: Other (See Below) Other Hematologic History: easy brusing Immunologic History: Reports: None Oncologic (Cancer) History: Reports: None Dermatologic History: Reports: None - Infectious Disease History Infectious Disease History: Reports: Chicken Pox - Past Surgical History Head Surgeries/Procedures: Reports: None HEENT Surgical History: Reports: Cataract Surgery, Tonsillectomy Cardiovascular Surgical History: Reports: None Respiratory Surgical History: Reports: None GI Surgical History: Reports: Colonoscopy, Hernia Repair/Other Other GI Surgeries/Procedures: hx incisional hernia repair Female Surgical History: Reports: Hysterectomy Endocrine Surgical History: Reports: None Neurological Surgical History: Reports: None Musculoskeletal Surgical History: Reports: None Social & Family History - Family History Family Medical History: No Pertinent Family History - Caffeine Use Caffeine Use: Reports: Soda - Recreational Drug Use Recreational Drug Use: No ED ROS GENERAL - Review of Systems Review Of Systems: See Below ED EXAM, GENERAL - Physical Exam Exam: See Below Course - Vital Signs Last Recorded V/S: Last Vital Signs Temp 96.7 F L 02/12/21 00:25 Pulse 82 02/12/21 01:47 Resp 17 02/12/21 01:47 BP 127/86 02/12/21 01:47 Pulse Ox 93 L 02/12/21 01:47 - Orders/Labs/Meds Orders: Active Orders 24 hr Category Date Time Status Sodium Chloride 0.9% [Saline Flush] Med 02/12/21 00:41 Active 10 ml FLUSH ASDIRECTED PRN Sodium Chloride 0.9% [Saline Flush] Med 02/12/21 00:41 Active 2.5 ml FLUSH ASDIRECTED PRN Saline Lock Insert [OM.PC] Stat Oth 02/12/21 00:41 Ordered Medication Orders Sodium Chloride (Sodium Chloride 0.9% 10 Ml Syringe) 10 ml FLUSH ASDIRECTED PRN PRN Reason: Keep Vein Open Last Admin: 02/12/21 00:49 Dose: 10 ml Documented by: MESHA Sodium Chloride (Sodium Chloride 0.9% 2.5 Ml Syringe) 2.5 ml FLUSH ASDIRECTED PRN PRN Reason: Keep Vein Open Last Admin: 02/12/21 00:49 Dose: 2.5 ml Documented by: MESHA Labs: Laboratory Tests 02/12/21 02/12/21 02/12/21 Range/Units 00:35 00:48 00:48 WBC 9.85 (4.0-11.0) K/uL RBC 4.87 (4.30-5.90) M/uL Hgb 14.2 (12.0-16.0) g/dL Hct 43.4 (36.0-46.0) % MCV 89.1 (80.0-98.0) fL MCH 29.2 (27.0-32.0) pg MCHC 32.7 (31.0-37.0) g/dL RDW Std Deviation 47.3 (28.0-62.0) fl RDW Coeff of Joseph 15 (11.0-15.0) % Plt Count 276 (150-400) K/uL MPV 8.90 (7.40-12.00) fL Neut % (Auto) 61.9 (48.0-80.0) % Lymph % (Auto) 24.6 (16.0-40.0) % [place] % (Auto) 12.0 (0.0-15.0) % Eos % (Auto) 1.2 (0.0-7.0) % Baso % (Auto) 0.3 (0.0-1.5) % Neut # (Auto) 6.1 H (1.4-5.7) K/uL Lymph # (Auto) 2.4 (0.6-2.4) K/uL [place] # (Auto) 1.2 H (0.0-0.8) K/uL Eos # (Auto) 0.1 (0.0-0.7) K/uL Baso # (Auto) 0.0 (0.0-0.1) K/uL Sodium 140 (136-145) mmol/L Potassium 4.3 (3.5-5.1) mmol/L Chloride 102 (98-107) mmol/L Carbon Dioxide 28.1 (21.0-32.0) mmol/L BUN 15 (7.0-18.0) mg/dL Creatinine 0.8 (0.6-1.0) mg/dL Est Cr Clr Drug Dosing 64.76 mL/min Estimated GFR (MDRD) > 60.0 ml/min Glucose 102 (74-106) mg/dL Calcium 8.9 (8.5-10.1) mg/dL Total Bilirubin 0.2 (0.2-1.0) mg/dL AST 9 L (15-37) IU/L ALT 15 (14-63) IU/L Alkaline Phosphatase 73 (46-116) U/L Total Protein 7.3 (6.4-8.2) g/dL Albumin 3.2 L (3.4-5.0) g/dL Globulin 4.1 H (2.6-4.0) g/dL Albumin/Globulin Ratio 0.8 L (0.9-1.6) Lipase 67 L (73-393) U/L Urine Color YELLOW Urine Appearance CLEAR Urine pH 6.0 (5.0-8.0) Ur Specific [place] 1.010 (1.001-1.035) Urine Protein NEGATIVE (NEGATIVE) mg/dL Urine Glucose (UA) NEGATIVE (NEGATIVE) mg/dL Urine Ketones NEGATIVE (NEGATIVE) mg/dL Urine Occult Blood NEGATIVE (NEGATIVE) Urine Nitrite NEGATIVE (NEGATIVE) Urine Bilirubin NEGATIVE (NEGATIVE) Urine Urobilinogen 0.2 (<2.0) EU/dL Ur Leukocyte Esterase NEGATIVE (NEGATIVE) Meds: Medications Generic Name Dose Route Start Last Admin Trade Name Rajq PRN Reason Stop Dose Admin Sodium Chloride 10 ml 02/12/21 00:41 02/12/21 00:49 Sodium Chloride 0.9% 10 Ml Syringe FLUSH 10 ml ASDIRECTED PRN Administration Keep Vein Open Sodium Chloride 2.5 ml 02/12/21 00:41 02/12/21 00:49 Sodium Chloride 0.9% 2.5 Ml Syringe FLUSH 2.5 ml ASDIRECTED PRN Administration Keep Vein Open Discontinued Medications Generic Name Dose Route Start Last Admin Trade Name Freq PRN Reason Stop Dose Admin Hydromorphone HCl 1 mg 02/12/21 00:41 02/12/21 00:48 Hydromorphone 1 Mg/Ml Syringe IVPUSH 02/12/21 00:42 1 mg ONETIME ONE Administration Sodium Chloride 1,000 mls @ 999 mls/hr 02/12/21 00:41 02/12/21 00:48 Normal Saline IV 02/12/21 01:41 999 mls/hr .Bolus ONE Administration Ondansetron HCl 4 mg 02/12/21 00:41 02/12/21 00:48 Ondansetron 4 Mg/2 Ml Sdv IVPUSH 02/12/21 00:42 4 mg ONETIME ONE Administration Departure - Departure Time of Disposition: 02:38 Disposition: Home, Self-Care 01 Condition: Good Clinical Impression: Abdominal pain - Discharge Information Instructions: Abdominal Pain, Adult, [id number] Referrals: Angela Lockhart MD [Primary Care Provider] - Forms: ED Department Discharge Additional Instructions: Your seen and evaluated in the ER today secondary to abdominal pain. Your work- up is been normal without any specific cause for your pain. You will need to follow-up with your family doctor to get a referral to a specialist to assist you with further evaluation of your pain if it should persist. You will be given a prescription for Ely to help you with your pain until you are able to see your family doctor. The following information is given to patients seen in the emergency department who are being discharged to home. This information is to outline your options for follow-up care. We provide all patients seen in our emergency department with a follow-up referral. The need for follow-up, as well as the timing and circumstances, are variable depending upon the specifics of your emergency department visit. If you don't have a primary care physician on staff, we will provide you with a referral. We always advise you to contact your personal physician following an emergency department visit to inform them of the circumstance of the visit and for follow-up with them and/or the need for any referrals to a consulting specialist. The emergency department will also refer you to a specialist when appropriate. This referral assures that you have the opportunity for follow-up care with a specialist. All of these measure are taken in an effort to provide you with optimal care, which includes your follow-up. Under all circumstances we always encourage you to contact your private physician who remains a resource for coordinating your care. When calling for follow-up care, please make the office aware that this follow-up is from your recent emergency room visit. If for any reason you are refused follow-up, please contact the [facility] Emergency Department at and asked to speak to the emergency department charge nurse. [facility] [address], [place] [address] [facility] [address] [place] [id number] Sepsis Event Note (ED) - Evaluation Sepsis Screening Result: No Definite Risk - Focused Exam Vital Signs: Vital Signs Temp Pulse Resp BP Pulse Ox 02/12/21 01:47 82 17 127/86 93 L 02/12/21 00:25 96.7 F L 91 18 127/86 100 - My Orders Last 24 Hours: My Active Orders 02/12/21 00:41 Sodium Chloride 0.9% [Saline Flush] 10 ml FLUSH ASDIRECTED PRN Sodium Chloride 0.9% [Saline Flush] 2.5 ml FLUSH ASDIRECTED PRN Saline Lock Insert [OM.PC] Stat - Assessment/Plan Last 24 Hours: My Active Orders 02/12/21 00:41 Sodium Chloride 0.9% [Saline Flush] 10 ml FLUSH ASDIRECTED PRN Sodium Chloride 0.9% [Saline Flush] 2.5 ml FLUSH ASDIRECTED PRN Saline Lock Insert [OM.PC] Stat
--- NOTE | 2021-02-12 02:34 | CT ---
INDICATION: Right flank and right lower quadrant pain TECHNIQUE: CT abdomen and pelvis without contrast. COMPARISON: None FINDINGS: Lower chest: Unremarkable. Liver: Unremarkable. Spleen: Unremarkable. Pancreas: Unremarkable. Gallbladder and bile ducts: Gallbladder sludge or stones. Adrenal glands: 9 mm left adrenal gland adenoma. Kidneys: Nonobstructive bilateral nephrolithiasis. No hydronephrosis or ureteral stone. GI tract: Colonic diverticulosis. Appendix appears to be surgically absent. Vascular structures: Unremarkable. Lymph nodes: Unremarkable. Miscellaneous: Status post ventral herniorrhaphy with mesh placement. Just above the level of the mesh, there is a fat containing ventral hernia. Pelvic Organs: Status post hysterectomy. Bones: L2-L5 instrumentation. 2.1 cm popcorn like sclerotic lesion in the left femoral head. There also several 2-4 mm sclerotic lesions in both femoral heads. Bilateral sacroiliac joint sclerosis. IMPRESSION: Bilateral nephrolithiasis without hydronephrosis. Gallbladder sludge or stones. Left adrenal gland adenoma. Colonic diverticulosis. Appendix appears to be surgically absent. Correlate with surgical history. Small fat containing ventral hernia located just above ventral herniorrhaphy mesh. Stable popcorn like lesion in the left femoral head may represent an enchondroma. If there is any pain in the left hip recommend MRI for further evaluation. Bilateral sacroiliac joint sclerosis, slightly increased compared to the prior study. Status post hysterectomy in L2-L5 instrumentation. Please note that all CT scans at this facility use dose modulation, iterative reconstruction, and/or weight-based dosing when appropriate to reduce radiation dose to as low as reasonably achievable. Dictated by Angelique Crain MD @ 02/12/2021 2:14:58 AM (Electronically Signed)
[2021-02-12 02:43] VITALS: BP 135/76; PULSE 68
== END 2021-02-12 02:46 | disposition home or self-care (01) ==
LOC: MW.ED 23:53
DX: R10.31 Right lower quadrant pain (principal); R30.0 Dysuria; R35.0 Frequency of micturition; R39.15 Urgency of urination; R31.9 Hematuria, unspecified; K92.1 Melena; I10 Essential (primary) hypertension; J44.9 Chronic obstructive pulmonary disease, unspecified; Z88.6 Allergy status to analgesic agent; Z88.5 Allergy status to narcotic agent; Z79.899 Other long term (current) drug therapy
CPT/HCPCS: 36415; 74176; 80053; 81003; 83690; 85025; 96374; 96375; 99284; J1170; J2405; J7030; 99283

== ENCOUNTER 2023-07-22 11:22 | Emergency (ER) | payer MEDICARE, MEDICAID ==
[2023-07-22 12:57] VITALS: BP 154/86; PULSE 75
== END 2023-07-22 13:11 | disposition home or self-care (01) ==
LOC: MW.ED 11:22
DX: R21 Rash and other nonspecific skin eruption (principal); E78.00 Pure hypercholesterolemia, unspecified; K21.9 Gastro-esophageal reflux disease without esophagitis; I10 Essential (primary) hypertension; J45.909 Unspecified asthma, uncomplicated; Z79.899 Other long term (current) drug therapy; Z88.6 Allergy status to analgesic agent; Z88.5 Allergy status to narcotic agent
CPT/HCPCS: 99282; 99283

== ENCOUNTER 2024-05-04 20:11 | Emergency (ER) | payer MEDICARE, MEDICAID ==
[2024-05-04] MEDS: HYDROmorphone 1 MG/ML Syringe IM ONE (20:53)
[2024-05-04] MEDS: Ondansetron 4 MG Tab.DIS PO ONE (20:53)
[2024-05-04] MEDS: Cyclobenzaprine 10 MG Tab PO ONE (20:57)
[2024-05-04 22:32] VITALS: BP 133/79; PULSE 70
== END 2024-05-04 22:27 | disposition home or self-care (01) ==
LOC: MW.ED 20:11
DX: M54.9 Dorsalgia, unspecified (principal); G89.29 Other chronic pain; F41.9 Anxiety disorder, unspecified; R06.00 Dyspnea, unspecified; I10 Essential (primary) hypertension; J44.9 Chronic obstructive pulmonary disease, unspecified; Z90.710 Acquired absence of both cervix and uterus; Z79.899 Other long term (current) drug therapy; Z88.5 Allergy status to narcotic agent; Z88.6 Allergy status to analgesic agent; Z88.8 Allergy status to other drugs, medicaments and biological substances; Z75.8 Other problems related to medical facilities and other health care
CPT/HCPCS: 71045; 96372; 99284; A9270; J1170

== ENCOUNTER 2024-11-15 20:57 | Emergency (ER) | payer MEDICARE, OTHER ==
[2024-11-15] MEDS ORDERED: Naloxone 0.4 MG/ML SDV IVPUSH PRN (22:38)
[2024-11-15] MEDS: Ondansetron 4 MG Tab.DIS PO ONE (22:57)
[2024-11-15] MEDS: Morphine 2 MG/ML SYRINGE IM ONE (22:58)
[2024-11-15] MEDS: Ibuprofen 600 MG Tab PO ONE (22:58)
[2024-11-15 23:29] VITALS: BP 115/74; PULSE 82
== END 2024-11-15 23:28 | disposition home or self-care (01) ==
LOC: MW.ED 20:57
DX: M54.41 Lumbago with sciatica, right side (principal); I10 Essential (primary) hypertension; J44.9 Chronic obstructive pulmonary disease, unspecified; E20.9 Hypoparathyroidism, unspecified; F17.210 Nicotine dependence, cigarettes, uncomplicated; Z90.710 Acquired absence of both cervix and uterus; Z75.8 Other problems related to medical facilities and other health care; Z79.899 Other long term (current) drug therapy; Z79.890 Hormone replacement therapy; Z79.891 Long term (current) use of opiate analgesic; Z88.6 Allergy status to analgesic agent; Z88.5 Allergy status to narcotic agent; Z88.8 Allergy status to other drugs, medicaments and biological substances
CPT/HCPCS: 96372; 99283; A9270; J2270

== ENCOUNTER 2025-05-08 16:25 | Emergency (ER) | payer MEDICARE, OTHER, MEDICAID ==
[2025-05-08] MEDS ORDERED: Sodium Chloride 0.9% 10 ML Syringe FLUSH PRN (16:31)
[2025-05-08] MEDS ORDERED: Sodium Chloride 0.9% 2.5 ML Syringe FLUSH PRN (16:31)
[2025-05-08 16:42] LABS: BASOPHILS ABSOLUTE AUTO 0.04 K/uL (0.00-0.20); BASOPHILS PERCENT AUTO 0.5 % (0.0-1.0); EOSINOPHILS ABSOLUTE AUTO 0.09 K/uL (0.00-0.45); EOSINOPHILS PERCENT AUTO 1.0 % (0.0-6.0); IMMATURE GRAN ABSOLUTE AUTO 0.04 K/uL (0.00-0.05); IMMATURE GRAN PERCENT AUTO 0.5 % (0.0-0.4); LYMPHOCYTES ABSOLUTE AUTO 2.59 K/uL (1.00-4.80); LYMPHOCYTES PERCENT AUTO 29.6 % (24.0-44.0); MEAN PLATELET VOLUME 9.4 fL (9.4-12.3); MONOCYTES ABSOLUTE AUTO 0.97 K/uL (0.00-0.80); MONOCYTES PERCENT AUTO 11.1 % (0.0-8.0); NEUTROPHILS ABSOLUTE AUTO 5.03 K/uL (1.80-7.70); NEUTROPHILS PERCENT AUTO 57.3 % (41.0-71.0); NRBC ABSOLUTE 0.00 K/uL (0.00-0.02); NRBC PERCENT 0.0 /100WBC (0.0-0.2); PLATELET COUNT,PLT 204 K/uL (150-400); RED BLOOD CELL COUNT 4.88 M/uL (4.10-5.30); WHITE BLOOD CELL COUNT,WBC 8.76 K/uL (3.9-11.3)
[2025-05-08 16:56] LABS: D-DIMER QUANTITATIVE 0.43 mg/L FEU (0.00-0.50); INR < 0.93 (0.86-1.11)
[2025-05-08 17:20] LABS: A/G RATIO 0.8 (0.9-1.6); ALANINE AMINOTRANSFERASE,ALT 15.0 IU/L (14-63); ASPARTATE AMNIOTRANSFERASE,AST 8.0 IU/L (15-37); BILIRUBIN TOTAL 0.1 mg/dL (0.2-1.0); BLOOD UREA NITROGEN,BUN 16.0 mg/dL (7.0-18.0); CARBON DIOXIDE,CO2 29.8 mmol/L (21.0-32.0); CHLORIDE,CL 107.0 mmol/L (98-107); CREATININE 0.7 mg/dL (0.6-1.0); EST CRCL DRUG DOSING (CG) 70.01 mL/min; ESTIMATED GFR 93.0 mL/min (>60); GLUCOSE RANDOM 95.0 mg/dL (74-106); POTASSIUM,K 3.8 mmol/L (3.5-5.1); PRO B-TYPE NATRIUR PEPT,BNPPRO 346.0 pg/mL (0-125); PROTEIN TOTAL,TP 6.6 g/dL (6.4-8.2); SODIUM,NA 143.0 mmol/L (136-145); TSH ULTRASENSITIVE 0.05 uIU/mL (0.36-3.74)
[2025-05-08] MEDS: Furosemide 40 MG/4 ML VIAL IVPUSH ONE (17:35)
[2025-05-08 18:08] LABS: APPEARANCE,URINE CLEAR; GLUCOSE,URINE NEGATIVE (NEGATIVE); OCCULT BLOOD,URINE NEGATIVE (NEGATIVE)
[2025-05-08 18:45] VITALS: BP 118/79; PULSE 77
== END 2025-05-08 18:43 | disposition home or self-care (01) ==
LOC: MW.ED 16:25
DX: R42 Dizziness and giddiness (principal); I10 Essential (primary) hypertension; Z75.3 Unavailability and inaccessibility of health-care facilities; Z79.899 Other long term (current) drug therapy; Z88.6 Allergy status to analgesic agent; Z88.8 Allergy status to other drugs, medicaments and biological substances
CPT/HCPCS: 36415; 71045; 71045-26; 80053; 81003; 83880; 84443; 84484; 85025; 85379; 85610; 93005; 93010; 96361; 96374; 99283; 99285-25; J1938; J7030